=== PATIENT | female | born 1995 | race Hispanic/Latino ===

== ENCOUNTER 2024-09-15 09:56 | Inpatient (IN) | payer MEDICAID, OTHER ==
[2024-09-15 10:45] VITALS: BMI 26.5
[2024-09-15] MEDS ORDERED: hydrALAZINE 20 MG/ML VIAL SLOW IVP PRN ×2 (10:49→13:32)
[2024-09-15] MEDS ORDERED: Promethazine HCl 25 MG/ML VIAL IM PRN ×2 (10:49→11:46)
[2024-09-15] MEDS ORDERED: Carboprost 250 MCG/ML AMP IM PRN (10:49)
[2024-09-15] MEDS ORDERED: Methylergonovine 0.2 MG/ML VIAL IM PRN (10:49)
[2024-09-15] MEDS ORDERED: Ondansetron PF 4 MG/2 ML Vial IVP PRN ×3 (10:49→11:46)
[2024-09-15] MEDS ORDERED: Misoprostol 200 MCG TAB PR PRN (10:49)
[2024-09-15] MEDS ORDERED: Bicitra 30 ML UDCUP PO PRN (10:49)
[2024-09-15] MEDS ORDERED: Tranexamic Acid 1,000 MG/10 ML VIAL IVP PRN (10:49)
[2024-09-15] MEDS ORDERED: Diphenoxylate HCl/Atropine Tablet PO PRN (10:49)
[2024-09-15] MEDS: Lactated Ringer's 1,000 ML IV SCH (10:58)
[2024-09-15] MEDS ORDERED: Azithromycin 500 MG in Sodium Chloride 0.9% 250 ML 250 ML IVPB SCH (11:00)
[2024-09-15] MEDS ORDERED: Oxytocin 30 units/NS 500 ML 500 ML IV SCH (11:00)
[2024-09-15 11:17] LABS: Hemoglobin 12.2 g/dL (12.0-15.5); Mean Corpuscular HGB CONC 32.1 g/dL (32.0-36.0); Mean Corpuscular Hemoglobin 31.4 pg (27.0-33.0); Mean Corpuscular Volume 97.7 fL (81.6-98.3); Mean Platelet Volume 11.3 fL (7.4-10.4); Platelet Count 196 10x3/uL (150-450); RBC Distribution Width 13.2 % (11.5-14.5); Red Blood Cell (RBC) Count 3.89 10x6/uL (3.90-5.03); White Blood Cell (WBC) Count 9.3 10x3/uL (3.5-10.5)
[2024-09-15] MEDS ORDERED: Hydrocortisone Sod Succ/PF 100 mg/2 ml Vial IVP SCH ×2 (11:33→12:00)
[2024-09-15] MEDS ORDERED: Naloxone HCl 0.4 mg/ml Vial IV PRN (11:46)
[2024-09-15] MEDS ORDERED: Moisturizing Cream (Eucerin) 113 GM JAR TOP PRN (11:46)
[2024-09-15] MEDS ORDERED: diphenhydrAMINE 50 MG/ML VIAL IVP PRN (11:46)
[2024-09-15] MEDS ORDERED: fentaNYL 50 mcg/mL 1 mL Vial SLOW IVP PRN (11:46)
[2024-09-15] MEDS ORDERED: Naloxone HCl 0.4 mg/ml Vial IVP PRN ×2 (11:46)
[2024-09-15] MEDS ORDERED: Meperidine HCl/PF 25 MG (1 mL) VIAL SLOW IVP PRN (11:46)
[2024-09-15] MEDS ORDERED: Communication Order-Pharmacy FS SCH (12:00)
[2024-09-15 12:01] LABS: Syphilis Antibody Nonreactive (Nonreactive); Syphilis Antibody Index 0.04 S/CO (<1.00 Non-Reactive)
[2024-09-15] MEDS: Famotidine/PF 20 mg/2ml Vial SLOW IVP PRN (12:01)
[2024-09-15] MEDS: CEFAZOLIN 2 GM in Sodium Chloride 0.9% 100 ML IVPB SCH (12:01)
[2024-09-15 13:12] LABS: HBsAg Index 1.25 S/CO (0-0.99)
[2024-09-15] MEDS ORDERED: Acetaminophen 325 MG TAB PO PRN (13:32)
[2024-09-15 13:37] LABS: Hep B Surf Ag - L&D Reflx Confirmation S/CO (NonReactive)
[2024-09-15] MEDS: Dexamethasone 10 MG/ML VIAL ONE (14:26)
[2024-09-15] MEDS: Ketorolac Tromethamine 30 MG (1 mL) VIAL ONE (14:27)
[2024-09-15] MEDS: Morphine PF 10 MG/10 ML VIAL ONE (14:27)
[2024-09-15] MEDS: Oxytocin 10 UNITS/ML VIAL ONE (14:27)
[2024-09-15] MEDS: Ondansetron PF 4 MG/2 ML Vial ONE (14:27)
[2024-09-15] MEDS: Hydrocortisone Sod Succ/PF 100 mg/2 ml Vial ONE (14:27)
[2024-09-15] MEDS: PHENYLEPHRINE-NS 100 MCG/ML 10 ML SYRINGE ONE (14:27)
[2024-09-15] MEDS: Sodium Chloride 0.9% 10 ML ONE ×2 (14:28)
[2024-09-15] MEDS: Ketorolac Tromethamine 30 MG (1 mL) VIAL IVP SCH (15:28)
[2024-09-15] MEDS: Promethazine HCl 25 MG/ML VIAL ONE (15:28)
[2024-09-15] MEDS: Hydrocortisone Sod Succ/PF 100 mg/2 ml Vial IVP SCH (21:01)
[2024-09-15] MEDS: Docusate 100 MG CAP PO PRN (21:02)
[2024-09-16] MEDS: Ketorolac Tromethamine 30 MG (1 mL) VIAL IVP PRN (04:48)
[2024-09-16 05:25] LABS: Hematocrit 30.5 % (34.9-44.5); Hemoglobin 9.9 g/dL (12.0-15.5); Mean Corpuscular HGB CONC 32.5 g/dL (32.0-36.0); Mean Corpuscular Hemoglobin 31.7 pg (27.0-33.0); Mean Corpuscular Volume 97.8 fL (81.6-98.3); Platelet Count 270 10x3/uL (150-450); Red Blood Cell (RBC) Count 3.12 10x6/uL (3.90-5.03); White Blood Cell (WBC) Count 14.3 10x3/uL (3.5-10.5)
[2024-09-16] MEDS: Boostrix 0.5 ML (Tdap) VIAL (>/=7 yrs of age) IM ONE (07:32)
[2024-09-16] MEDS: Hydrocortisone Sod Succ/PF 100 mg/2 ml Vial IVP SCH (07:33)
[2024-09-16] MEDS: Polyethylene Glycol 3350 17 GM Packet PO SCH (08:44)
[2024-09-16] MEDS ORDERED: Ferrous Sulfate 325 MG TAB PO SCH (08:45)
[2024-09-16] MEDS: Ferrous Sulfate 325 MG TAB PO SCH (08:45)
[2024-09-16] MEDS: HYDROcodone/Acetaminophen 5/325 mg Tablet PO PRN (13:55)
[2024-09-16] MEDS: Ibuprofen 800 MG TAB PO SCH (17:26)
[2024-09-17] MEDS: Ferrous Sulfate 325 MG TAB PO SCH (08:03)
[2024-09-17] MEDS: Hydrocortisone 10 mg Tablet PO SCH (08:03)
[2024-09-17 09:01] VITALS: BP 90/53; TEMP 97.8
[2024-09-17] MEDS ORDERED: Lactulose 20 GM (30 mL) UDCUP PO PRN (10:27)
[2024-09-17] MEDS ORDERED: Docusate 100 MG CAP PO PRN (10:49)
[2024-09-17] MEDS ORDERED: Senokot 8.6 MG TAB PO SCH (21:00)
[2024-09-19 07:13] LABS: Hep B Surface AG-Rflx Sendout Negative (Negative)
== END 2024-09-17 16:55 | disposition home or self-care (01) | DRG 787 ==
LOC: CSHLD 09:56 → CSHPP 15:40
PROVIDERS: ADMIT Family Medicine; ATTEND Family Medicine
PROC: 10D00Z1 Extraction of Products of Conception, Low, Open Approach (ICD-10-PCS; principal; 2024-09-15)
DX: O99.02 Anemia complicating childbirth (principal); E23.2 Diabetes insipidus; Z3A.39 39 weeks gestation of pregnancy; Z37.0 Single live birth; D25.9 Leiomyoma of uterus, unspecified; O99.283 Endocrine, nutritional and metabolic diseases complicating pregnancy, third trimester; O75.89 Other specified complications of labor and delivery; O36.63X0 Maternal care for excessive fetal growth, third trimester, not applicable or unspecified
CPT/HCPCS: 36415; 51702; 85027; 86780; 86850; 86900; 86901; 87340; J1100; J1720; J1885; J2274; J2405; J2550; J2590; J3490; J7120